=== PATIENT | female | born 1990 | race Two or more races ===

== ENCOUNTER → 2019-12-06 | Outpatient (CLI) | payer OTHER | END | disposition home or self-care (01) | LOC: MAMO-SONO 08:15 → SONOGRAMA 08:16 | PROVIDERS: ATTEND Obstetrics & Gynecology Maternal & Fetal Medicine | DX: N84.0 Polyp of corpus uteri (principal) ==

== ENCOUNTER 2020-06-24 05:21 | Day surgery (SDC) | payer OTHER ==
[~2020-06-24 05:21] MED LIST: SINGULAIR 10MG10 MG; ZYRTEC10 M2
== END 2020-06-24 12:15 | disposition home or self-care (01) ==
LOC: CIR.AMB 05:21
PROVIDERS: ATTEND Obstetrics & Gynecology Maternal & Fetal Medicine
DX: N84.0 Polyp of corpus uteri (principal); Z20.822 Contact with and (suspected) exposure to COVID-19